=== PATIENT | female | born 1970 | race Caucasian/White ===

== ENCOUNTER 2019-08-17 10:18 | Emergency (ER) | payer OTHER ==
--- NOTE | 2019-08-17 17:58 | RAD ---
LEFT ELBOW FOUR VIEWS: 08/17/19 No fracture or joint effusion was seen. The bones and joints appear normal. If there is lingering zach n, then an MRI would be suggested to better investigate the various ligaments and tendons in the bridger on. IMPRESSION: No acute bony finding. POS: HOME
--- NOTE | 2019-08-17 18:01 | RAD ---
SACRUM AND COCCYX: 08/17/19 The arcuate lines of the sacrum all appeared intact. No fractures were evident today on these plain r adiographs. Subtle cracks would be missed on all but CT. The SI joints appear normal. The coccyx nathaly ears to be normally located. IMPRESSION: No acute bony finding. POS: HOME
== END 2019-08-17 11:04 | disposition home or self-care (01) ==
LOC: BURERS 10:18
DX: S30.0XXA Contusion of lower back and pelvis, initial encounter (principal); S50.02XA Contusion of left elbow, initial encounter; E78.5 Hyperlipidemia, unspecified; E78.00 Pure hypercholesterolemia, unspecified; I10 Essential (primary) hypertension; G43.909 Migraine, unspecified, not intractable, without status migrainosus; E11.9 Type 2 diabetes mellitus without complications; I25.10 Atherosclerotic heart disease of native coronary artery without angina pectoris; F17.210 Nicotine dependence, cigarettes, uncomplicated; Z79.84 Long term (current) use of oral hypoglycemic drugs; Z79.82 Long term (current) use of aspirin; Z79.899 Other long term (current) drug therapy; W17.89XA Other fall from one level to another, initial encounter
CPT/HCPCS: 72220